=== PATIENT | female | born 1980 | race Caucasian/White ===

== ENCOUNTER 2017-05-30 15:22 | Emergency (ER) | payer BC ==
[~2017-05-30] VITALS: Wt 81.6 kg
[~2017-05-30 15:22] MED LIST: ADDERALL XR20 MG PO; ADDERALL20 MG PO; AMOXIL500 MG PO; AMPHETAMINE SAL20 MG PO; ATIVAN2 MG PO; AUGMENTIN 500 M1 TAB PO; AUGMENTIN 875 M1 TAB PO; BACTRIM DS 8001 TA1 PO; CIPRODEX 0.3%-7.5 ML OT; CLARITIN-D 10 M1 T21 PO; CLARITIN10 MG PO; FLEXERIL10 MG PO; FLONASE 0.05% 121 EA NAS; FLONASE ALLERG9.9 ML NAS; HYDROCODONE BIT1 T11 PO; IBU-8800 MG PO; KEFLEX500 M1 PO; LORAZEPAM2 MG PO; MEDROL DOSEPAK4 MG PO; MINASTRIN PO; MULTI-DAY PLUS1 TAB PO; OMEPRAZOLE DR20 MG PO; PERCOCET 325 MG1 TA2 PO; PERCOCET 325 MG1 TA5 PO; PREDNISONE10 MG PO; PROZAC20 MG PO; ROBITUSSIN DM 105 ML PO; SPRINTEC 35 MCG1 TA1 PO; TESSALON PERLE100 M1 PO; VICODIN 5/500 505 MG PO; ZOFRAN ODT4 MG SL; ZYRTEC10 M2 PO
[2017-05-30 15:26] VITALS: BP 150/90
[2017-05-30] MEDS ORDERED: MEDROL DOSEPAK4 MG PO (15:38)
[2017-05-30] MEDS ORDERED: OMNICEF300 MG PO (15:38)
== END 2017-05-30 15:45 | disposition home or self-care (01) ==
LOC: ED 15:22
DX: J01.10 Acute frontal sinusitis, unspecified (principal); J06.9 Acute upper respiratory infection, unspecified; F17.200 Nicotine dependence, unspecified, uncomplicated; Z88.6 Allergy status to analgesic agent; Z79.899 Other long term (current) drug therapy; Z90.49 Acquired absence of other specified parts of digestive tract; Z98.51 Tubal ligation status

== ENCOUNTER 2017-09-02 15:06 | Emergency (ER) | payer BC ==
[~2017-09-02] VITALS: Ht 162.5 cm; Wt 83.9 kg
[~2017-09-02 15:06] MED LIST changes: +OMNICEF300 MG PO
[2017-09-02 15:07] VITALS: BP 130/86
[2017-09-02] MEDS ORDERED: CLARITIN10 MG PO (15:37)
[2017-09-02] MEDS ORDERED: FLONASE ALLERG9.9 ML NAS (15:37)
== END 2017-09-02 16:44 | disposition home or self-care (01) ==
LOC: ED 15:06
DX: B34.9 Viral infection, unspecified (principal); R03.0 Elevated blood-pressure reading, without diagnosis of hypertension; H92.02 Otalgia, left ear; Z88.6 Allergy status to analgesic agent; Z79.899 Other long term (current) drug therapy

== ENCOUNTER 2018-06-10 12:41 | Emergency (ER) | payer BC ==
[~2018-06-10] VITALS: Wt 86.2 kg
[2018-06-10 12:42] VITALS: BP 127/81
[2018-06-10] MEDS ORDERED: ZITHROMAX250 MG PO (13:41)
== END 2018-06-10 13:43 | disposition home or self-care (01) ==
LOC: ED 12:41
DX: J06.9 Acute upper respiratory infection, unspecified (principal); R42 Dizziness and giddiness; Z88.5 Allergy status to narcotic agent; Z79.899 Other long term (current) drug therapy; Z90.49 Acquired absence of other specified parts of digestive tract

== ENCOUNTER → 2018-09-09 | Outpatient (CLI) | payer BC ==
[~2018-09-09] MED LIST changes: +ZITHROMAX250 MG PO
== END | disposition home or self-care (01) ==
LOC: US 09:44
DX: R14.0 Abdominal distension (gaseous) (principal); Z90.710 Acquired absence of both cervix and uterus; Z90.49 Acquired absence of other specified parts of digestive tract

== ENCOUNTER 2019-03-23 13:13 | Emergency (ER) | payer BC ==
[~2019-03-23] VITALS: Ht 162.5 cm; Wt 86.2 kg
[2019-03-23 13:15] VITALS: BP 134/97
[2019-03-23] MEDS ORDERED: FLONASE ALLERG9.9 ML NAS (14:10)
[2019-03-23] MEDS ORDERED: ZYRTEC10 MG PO (14:10)
[2019-03-23] MEDS ORDERED: AMOXICILLIN500 M2 PO (14:10)
== END 2019-03-23 13:56 | disposition home or self-care (01) ==
LOC: ED 13:13
DX: J01.90 Acute sinusitis, unspecified (principal); H66.92 Otitis media, unspecified, left ear; H92.01 Otalgia, right ear; F17.200 Nicotine dependence, unspecified, uncomplicated; Z88.5 Allergy status to narcotic agent; Z79.899 Other long term (current) drug therapy

== ENCOUNTER → 2019-04-06 | Outpatient (CLI) | payer BC ==
[~2019-04-06] MED LIST changes: +AMOXICILLIN500 M2 PO; +ZYRTEC10 MG PO
[2019-04-06 15:52] LABS: BILIRUBIN NEGATIVE (NEGATIVE); BLOOD 2+ (NEGATIVE); CLARITY SL CLOUDY (CLEAR); COLOR YELLOW (YELLOW); GLUCOSE NEGATIVE (NEGATIVE); KETONE NEGATIVE (NEGATIVE); LEUKO ESTERASE NEGATIVE (NEGATIVE); NITRITE NEGATIVE (NEGATIVE); SPECIFIC GRAVITY >= 1.030 (1.005-1.030); UROBILINOGEN 0.2 E.U./dl (0.2-1.0)
[2019-04-06 16:09] LABS: BACTERIA 1+; MUCOUS TRACE; WBC 0-2 wbc/hpf (0-5)
== END | disposition home or self-care (01) ==
LOC: LAB 15:31
PROVIDERS: Nurse Practitioner
DX: R31.0 Gross hematuria (principal)

== ENCOUNTER 2019-06-27 04:51 | Emergency (ER) | payer BC ==
[~2019-06-27] VITALS: Ht 162.5 cm; Wt 83.9 kg
[2019-06-27 04:55] VITALS: BP 138/84
[2019-06-27] MEDS ORDERED: Motrin,Rufen800 MG PO (06:19)
== END 2019-06-27 07:10 | disposition home or self-care (01) ==
LOC: ED 04:51
DX: S63.284A Dislocation of proximal interphalangeal joint of right ring finger, initial encounter (principal); F17.200 Nicotine dependence, unspecified, uncomplicated; Z88.5 Allergy status to narcotic agent; Z79.2 Long term (current) use of antibiotics; Z79.899 Other long term (current) drug therapy; Z90.49 Acquired absence of other specified parts of digestive tract; Z90.710 Acquired absence of both cervix and uterus; X50.1XXA Overexertion from prolonged static or awkward postures, initial encounter; Y93.89 Activity, other specified; Y92.89 Other specified places as the place of occurrence of the external cause; Y99.8 Other external cause status

== ENCOUNTER 2019-07-19 16:40 | Inpatient (IN) | payer BC ==
[~2019-07-19] VITALS: Ht 162.5 cm; Wt 93.6 kg
[~2019-07-19 16:40] MED LIST changes: +Motrin,Rufen800 MG PO
[2019-07-19 16:44] VITALS: BP 114/75
[2019-07-19 17:28] LABS: BASO % 0.3 % (0.0-1.0); EOS % 0.3 % (1.0-4.0); HEMATOCRIT 39.9 % (37.0-47.0); HEMOGLOBIN 12.9 g/dl (12.0-16.0); LYMPH # 1.6 10*3/uL (1.3-4.4); LYMPH % 23.9 % (27.0-41.0); MEAN CELL VOLUME 89.5 fl (81.0-99.0); MEAN CORPUSCULAR HGB 28.9 pg (27.0-31.0); MEAN CORPUSCULAR HGB CONC 32.3 g/dl (33.0-37.0); MEAN PLATELET VOLUME 10.1 fl (9.6-12.3); MONO # 0.8 10*3/uL (0.1-1.0); MONO % 11.4 % (3.0-9.0); NEUT # 4.3 10*3/uL (2.3-7.9); PLATELET COUNT AUTOMATED 222 10*3/uL (130-400); RED BLOOD COUNT 4.46 10*6/uL (4.10-5.10); WHITE BLOOD COUNT 6.8 10*3/uL (4.8-10.8)
[2019-07-19 17:46] LABS: ALBUMIN 3.2 gm/dl (3.1-4.5); ALKALINE PHOSPHATASE 59 U/L (45-117); BUN 6 mg/dl (7-24); CHLORIDE 103 mmol/L (98-107); CREATININE 0.62 mg/dL (0.55-1.02); POTASSIUM 3.5 mmol/L (3.5-5.1); SGOT/AST 11 IU/L (3-35); SGPT/ALT 16 U/L (12-78); SODIUM 135 mmol/L (136-145); TOTAL PROTEIN 7.2 gm/dL (6.4-8.2)
[2019-07-19 17:47] LABS: B-hCG (QUALITATIVE) NEGATIVE (NEGATIVE)
[2019-07-19 17:49] LABS: TROPONIN I < 0.015 ng/ml (<0.045)
[2019-07-19 18:05] VITALS: BP 137/88
--- NOTE | 2019-07-19 18:05 | NUR ---
Time: 1804 A 38 year old FEMALE admitted to 5E under services of ZENAIDA SHARP DO. Pt. arrived via stretcher from ER. Chief complaint: FACIAL CELLULITIS. KAYLAH TONY
[2019-07-19 20:00] VITALS: BP 122/81
--- NOTE | 2019-07-19 20:12 | NUR ---
24 HR chart check completed.
--- NOTE | 2019-07-19 21:14 | NUR ---
Patient is sleeping with easy and regular respers on room air. Awakens easily for assessment. Assessment is complete with no c/o or s/s of distress noted at this time. Bed is low, locked, and call light is within reach. Will continue to monitor, see shift assessment.
--- NOTE | 2019-07-19 23:00 | NUR ---
ASSUMED CARE FOR THIS PT AT THIS TIME. PT'S CHEEKS RED/WARM/TENDER/SWOLLEN. PT REFUSING TYLENOL AT THIS TIME. CALL LIGHT IN REACH.
[2019-07-20] VITALS: BP 110/74
--- NOTE | 2019-07-20 07:10 | NUR ---
ARRIVED ON SHIFT, INTRODUCED TO PATIENT, BED IN LOW POSITION, WHEEL LOCKS ENGAGED, SIDE RAILS UP X 2 FOR TURNING AND REPOSITIONING, CALL LIGHT WITHIN REACH NO NEEDS VOICED AT THIS TIME, WHITE BOARD UPDATED.
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
[2019-07-20 07:25] LABS: BASO % 0.4 % (0.0-1.0); EOS # 0.1 10*3/uL (0.0-0.4); EOS % 1.2 % (1.0-4.0); HEMATOCRIT 38.1 % (37.0-47.0); HEMOGLOBIN 12.2 g/dl (12.0-16.0); LYMPH # 1.8 10*3/uL (1.3-4.4); LYMPH % 25.3 % (27.0-41.0); MEAN CELL VOLUME 90.3 fl (81.0-99.0); MEAN CORPUSCULAR HGB 28.9 pg (27.0-31.0); MEAN PLATELET VOLUME 10.1 fl (9.6-12.3); NEUT # 4.1 10*3/uL (2.3-7.9); NEUT % 58.8 % (47.0-73.0); PLATELET COUNT AUTOMATED 203 10*3/uL (130-400); RED BLOOD COUNT 4.22 10*6/uL (4.10-5.10); RED CELL DISTRI WIDTH 13.2 % (0-14.5)
[2019-07-20 07:37] LABS: ACT PARTIAL THROMBO TIME 28.8 SECONDS (20.0-32.1)
[2019-07-20 07:55] LABS: ALBUMIN 2.9 gm/dl (3.1-4.5); ALKALINE PHOSPHATASE 53 U/L (45-117); BUN 7 mg/dl (7-24); CHLORIDE 107 mmol/L (98-107); CHOLESTEROL 126 mg/dL (<200); CREATININE 0.58 mg/dL (0.55-1.02); FREE T4 1.14 ng/dl (0.76-1.46); HDL CHOLESTEROL 46 mg/dl (40-60); LDL CHOLESTEROL 64 mg/dL (9-159); PHOSPHOROUS 3.1 mg/dL (2.5-4.9); POTASSIUM 3.7 mmol/L (3.5-5.1); SGOT/AST 10 IU/L (3-35); SGPT/ALT 16 U/L (12-78); SODIUM 139 mmol/L (136-145); TOTAL PROTEIN 6.6 gm/dL (6.4-8.2); TRIGLYCERIDES 80 mg/dl (<150); VLDL CHOLESTEROL 16 mg/dL (6-40)
[2019-07-20 07:59] LABS: THYROID STIM HORMONE (HS) 0.968 uIU/ml (0.358-4.75)
[2019-07-20 08:00] VITALS: BP 121/73
[2019-07-20 08:14] LABS: VITAMIN D, 25-HYDROXY 9.5 ng/mL (30-100)
--- NOTE | 2019-07-20 09:00 | NUR ---
Traveling Construction Superintendent in to talk to patient. Patient states lives at home with her and 3 children. There are 0 steps in the home. Physician: no family physician Pharmacy: [facility] Home health services: none Patient's level of ADLs: INDEPENDENT Patient has working utilities: yes DME: none Follow-up physician's appointment after d/c: will be made by the hospitalist nurse director upon discharge Does patient want to access PORTAL?: no Discharge plan discussed with patient. She lives at home with her and 3 children. She is independent in her ADLs and ambulation. Discussed home health care services and she denies any home needs at this time. When medically stable she will be discharged to home. She states her will provide transportation on discharge. NENITA TSE
--- NOTE | 2019-07-20 09:36 | NUR ---
Shift chart check completed.
[2019-07-20 10:04] LABS: BILIRUBIN NEGATIVE (NEGATIVE); BLOOD NEGATIVE (NEGATIVE); CLARITY SL CLOUDY (CLEAR); COLOR YELLOW (YELLOW); GLUCOSE NEGATIVE (NEGATIVE); KETONE NEGATIVE (NEGATIVE); LEUKO ESTERASE NEGATIVE (NEGATIVE); NITRITE NEGATIVE (NEGATIVE); SPECIFIC GRAVITY 1.015 (1.005-1.030); UROBILINOGEN 0.2 E.U./dl (0.2-1.0)
[2019-07-20 10:06] LABS: RBC 16-20 rbc/hpf (0-2); WBC 0-2 wbc/hpf (0-5)
[2019-07-20 10:07] LABS: BACTERIA 2+
--- NOTE | 2019-07-20 10:39 | NUR ---
Dr. Parrish notified of wound care recommendations. Dr. Parrish stated to give printouts to Ting in Hospitalist office.
[2019-07-20 12:00] VITALS: BP 120/74
[2019-07-20 16:00] VITALS: BP 121/77
--- NOTE | 2019-07-20 19:50 | NUR ---
PT MEDICATED W/TYLENOL FOR C/O FRONTAL H/A 12/20. WILL MONITOR FOR EFFECTIVENESS.
[2019-07-20 20:00] VITALS: BP 134/85
--- NOTE | 2019-07-20 22:36 | NUR ---
PT STATES THAT TYLENOL WAS EFFECTIVE FOR H/A RELIEF. PT HAD A SHOWER. RESTING QUIETLY IN BED AT THIS TIME. CALL LIGHT IN REACH.
[2019-07-21] VITALS: BP 109/65
--- NOTE | 2019-07-21 04:40 | NUR ---
24 HR chart check completed.
[2019-07-21 06:25] LABS: BASO % 0.6 % (0.0-1.0); EOS # 0.2 10*3/uL (0.0-0.4); EOS % 3.2 % (1.0-4.0); HEMATOCRIT 36.9 % (37.0-47.0); HEMOGLOBIN 11.8 g/dl (12.0-16.0); LYMPH # 1.5 10*3/uL (1.3-4.4); LYMPH % 28.7 % (27.0-41.0); MEAN CELL VOLUME 90.4 fl (81.0-99.0); MEAN CORPUSCULAR HGB 28.9 pg (27.0-31.0); MEAN PLATELET VOLUME 9.9 fl (9.6-12.3); MONO # 0.5 10*3/uL (0.1-1.0); MONO % 10.3 % (3.0-9.0); NEUT # 2.9 10*3/uL (2.3-7.9); PLATELET COUNT AUTOMATED 210 10*3/uL (130-400); RED BLOOD COUNT 4.08 10*6/uL (4.10-5.10); WHITE BLOOD COUNT 5.1 10*3/uL (4.8-10.8)
[2019-07-21 06:46] LABS: BUN 7 mg/dl (7-24); CHLORIDE 107 mmol/L (98-107); CREATININE 0.45 mg/dL (0.55-1.02); POTASSIUM 3.8 mmol/L (3.5-5.1); SODIUM 138 mmol/L (136-145)
[2019-07-21 08:00] VITALS: BP 113/67
--- NOTE | 2019-07-21 08:00 | NUR ---
Patient resting quietly with no c/o discomfort. Respirations easy and regular. Vital signs stable. No overt distress. CORI GUPTA
--- NOTE | 2019-07-21 08:40 | NUR ---
Dr. Hopkins notified of wound care recommendations.
--- NOTE | 2019-07-21 09:06 | NUR ---
Nutritional Support Services Note: Pt is on a regular diet consuming 100% of meals. Facial cellulitis noted. CBW: 206# Ht: 5'3. Continue to encourage good PO intakes. No other nutrition intervention needed at this time. Will follow if needed.SILVIA Napoles business analyst intern
--- NOTE | 2019-07-21 09:30 | NUR ---
Photography Intern in to see patient. No new needs or request at this time. She denies any home needs. When medically stable she will be discharged to home.
[2019-07-21 12:00] VITALS: BP 113/84
[2019-07-21 16:00] VITALS: BP 131/79
--- NOTE | 2019-07-21 16:00 | NUR ---
Patient resting quietly with no c/o discomfort. Respirations easy and regular. Vital signs stable. No overt distress. CORI GUPTA
[2019-07-21 20:00] VITALS: BP 125/79
--- NOTE | 2019-07-21 20:00 | NUR ---
RESTING IN BED WITH EYES CLOSED. AROUSES EASILY UPON GOING INTO ROOM. FACE REDDENED; PT. STATES THAT IT IS BETTER THAN IT WAS. PT. VOICES NO C/O AT THIS TIME; NO DISTRESS NOTED. CALL LIGHT WITHIN REACH.
[2019-07-22] VITALS: BP 124/75
--- NOTE | 2019-07-22 | NUR ---
RESTING IN BED; VOICES NO C/O AT THIS TIME. CALL LIGHT WITHIN REACH.
--- NOTE | 2019-07-22 06:30 | NUR ---
RESTING IN BED; VOICES NO C/O AT THIS TIME. CALL LIGHT WITHIN REACH.
[2019-07-22 06:53] LABS: CHLORIDE 109 mmol/L (98-107); CREATININE 0.48 mg/dL (0.55-1.02); POTASSIUM 3.9 mmol/L (3.5-5.1); SODIUM 140 mmol/L (136-145)
[2019-07-22 06:54] LABS: BUN 8 mg/dl (7-24)
[2019-07-22 08:00] VITALS: BP 130/82
--- NOTE | 2019-07-22 08:00 | NUR ---
Patient resting quietly with no c/o discomfort. Respirations easy and regular. Vital signs stable. No overt distress. CORI GUPTA
[2019-07-22] MEDS ORDERED: AUGMENTIN 875875 MG PO (10:57)
[2019-07-22] MEDS ORDERED: VITAMIN D350 MC2 PO (10:57)
--- NOTE | 2019-07-22 11:45 | NUR ---
PT DOESN'T WANT D/C PHOTO. RASH NEVER OPENED, R NOSE ABRASION SCABBED.
--- NOTE | 2019-07-22 12:02 | NUR ---
LEAVING IN CARE OF SPOUSE, AMBULATORY.
== END 2019-07-22 12:02 | disposition home or self-care (01) | DRG 603 ==
LOC: ED 16:40 → 5E 17:05 → EDHOLD 17:05 → 5E 17:53
PROVIDERS: Emergency Medicine; Hospitalist; Internal Medicine; ADMIT Emergency Medicine
DX: L03.211 Cellulitis of face (principal); E44.0 Moderate protein-calorie malnutrition; R73.9 Hyperglycemia, unspecified; E55.9 Vitamin D deficiency, unspecified; F17.210 Nicotine dependence, cigarettes, uncomplicated; F41.9 Anxiety disorder, unspecified; D64.9 Anemia, unspecified; E87.8 Other disorders of electrolyte and fluid balance, not elsewhere classified; Z71.6 Tobacco abuse counseling; W54.8XXA Other contact with dog, initial encounter; W54.0XXA Bitten by dog, initial encounter; Y93.89 Activity, other specified; Y92.89 Other specified places as the place of occurrence of the external cause; Y99.8 Other external cause status; Z68.35 Body mass index [BMI] 35.0-35.9, adult; Z90.49 Acquired absence of other specified parts of digestive tract; Z98.51 Tubal ligation status; Z88.5 Allergy status to narcotic agent; Z80.1 Family history of malignant neoplasm of trachea, bronchus and lung; Z83.6 Family history of other diseases of the respiratory system; Z79.899 Other long term (current) drug therapy

== ENCOUNTER → 2019-08-14 | Outpatient (CLI) | payer BC ==
[~2019-08-14] MED LIST changes: +AUGMENTIN 875875 MG PO; +VITAMIN D350 MC2 PO
[2019-08-15 16:05] LABS: BARBITURATE, URINE Negative ng/mL (Cutoff=200); CANNABINOID, URINE Negative ng/mL (Cutoff=20); CREATININE, UR 62.4 mg/dL (20.0-300.0); PH URINE 7.1 (4.5-8.9)
[2019-08-17 07:02] LABS: AMPHETAMINE (GC/MS), URINE >4000 ng/mL (Cutoff=500)
== END | disposition home or self-care (01) ==
LOC: LAB 09:37
PROVIDERS: Social Worker Clinical
DX: Z51.81 Encounter for therapeutic drug level monitoring (principal); Z79.899 Other long term (current) drug therapy

== ENCOUNTER 2020-08-30 17:48 | Emergency (ER) | payer BC ==
[~2020-08-30] VITALS: Ht 160 cm; Wt 79.4 kg
[2020-08-30 17:58] VITALS: BP 147/53
[2020-08-30] MEDS ORDERED: PROVENTIL HFA6.7 GM INH (19:13)
[2020-08-30] MEDS ORDERED: PREDNISONE20 M1 PO (19:13)
== END 2020-08-30 20:48 | disposition home or self-care (01) ==
LOC: ED 17:48
DX: U07.1 COVID-19 (principal); Z79.899 Other long term (current) drug therapy; Z88.8 Allergy status to other drugs, medicaments and biological substances; Z98.890 Other specified postprocedural states; Z90.711 Acquired absence of uterus with remaining cervical stump; Z98.51 Tubal ligation status; Z90.49 Acquired absence of other specified parts of digestive tract

== ENCOUNTER 2022-04-17 20:26 | Emergency (ER) | payer OTHER ==
[~2022-04-17] VITALS: Ht 160 cm; Wt 82.6 kg
[~2022-04-17 20:26] MED LIST changes: +PREDNISONE20 M1 PO; +PROVENTIL HFA6.7 GM INH
[2022-04-17] MEDS ORDERED: TAMIFLU 75MG CA75 MG PO (23:18)
== END 2022-04-17 23:32 | disposition home or self-care (01) ==
LOC: ED 20:26
DX: B34.9 Viral infection, unspecified (principal); J11.1 Influenza due to unidentified influenza virus with other respiratory manifestations; F17.200 Nicotine dependence, unspecified, uncomplicated; Z90.49 Acquired absence of other specified parts of digestive tract; Z98.51 Tubal ligation status; Z98.890 Other specified postprocedural states; Z88.5 Allergy status to narcotic agent